=== PATIENT | male | born 1945 | race Caucasian/White ===

== ENCOUNTER 2017-01-31 08:34 | Emergency (ER) | payer MEDICARE ==
[2017-01-31 09:18] LABS: ALKALINE PHOSPHATASE 45 U/L (46-116); ALT (SGPT) 28 U/L (10-68); BASOPHILS 0.4 % (0-2); BILIRUBIN - TOTAL 0.52 mg/dL (0.2-1.3); CALC OSMOLALITY 281 mosm/kg (275-300); CALCIUM 9.3 mg/dL (8.5-10.1); CARBON DIOXIDE 21.5 mmol/L (21.0-32.0); CHLORIDE - SERUM 105 mmol/L (98-107); EOSINOPHILS 2.4 % (0-7); GLUCOSE 191 mg/dL (74-106); HEMATOCRIT 47.2 % (42.0-54.0); HEMOGLOBIN 15.9 g/dL (13.5-17.5); IMMATURE GRANULOCYTES 0.2 % (0-5); LYMPHOCYTES 25.9 % (15-50); MCH 29.6 pg (26.0-34.0); MCHC 33.7 g/dL (31.0-37.0); MCV 87.7 fL (80.0-100.0); MEAN PLATELET VOLUME 10.4 fL (7.4-10.4); MONOCYTES 5.6 % (2-11); NEUTROPHILS 65.5 % (40-80); PLATELET COUNT 190 10x3/uL (130-400); POTASSIUM - SERUM 3.9 mmol/L (3.5-5.1); RBC 5.38 10x6/uL (4.20-6.10); RDW 13.8 % (11.5-14.5); SODIUM 139 mmol/L (136-145); UREA NITROGEN 11 mg/dL (7-18); eGFR NON AFRICAN AMERICAN 78 mL/min (90-120)
[2017-01-31 09:45] LABS: INR 0.96 (0.85-1.17); PROTIME 12.6 SECONDS (11.6-15.0)
== END 2017-01-31 10:17 | disposition home or self-care (01) ==
LOC: D.ER 08:34
PROVIDERS: Family Medicine
DX: R04.0 Epistaxis (principal)

== ENCOUNTER 2020-08-21 13:46 | Emergency (ER) | payer MEDICARE ==
[~2020-08-21] VITALS: Ht 175.3 cm; Wt 100.0 kg
[2020-08-21 13:51] VITALS: BP 120/84; Ht 175.3 cm; Wt 100.0 kg
[2020-08-21] MEDS ORDERED: GLUCOPHAGE1000 MG PO (13:53)
[2020-08-21] MEDS ORDERED: ASPIRIN81 MG PO (13:54)
[2020-08-21] MEDS ORDERED: FENOGLIDE40 MG PO (13:54)
[2020-08-21] MEDS ORDERED: CRESTOR20 MG PO (13:54)
== END 2020-08-21 14:47 | disposition home or self-care (01) ==
LOC: D.ER 13:46
DX: S61.012A Laceration without foreign body of left thumb without damage to nail, initial encounter (principal); E11.9 Type 2 diabetes mellitus without complications; Z79.84 Long term (current) use of oral hypoglycemic drugs; W45.8XXA Other foreign body or object entering through skin, initial encounter; Y93.9 Activity, unspecified; Y92.9 Unspecified place or not applicable